=== PATIENT | female | born 1940 | race Caucasian/White ===

== ENCOUNTER → 2019-01-29 09:53 | Outpatient (CLI) | payer MEDICARE ==
[2016-03-07 13:04] VITALS: BMI 28.9
[~2019-01-29 09:53] MED LIST: AMBIEN5 MG PO; BAYER CHEWABLE81 MG PO; FOLIC ACID1 MG PO; HUMIRA20 MG/0.4 SQ; METHOTREXATE2.5 MG PO; MIRALAX17 GM PO; OMEPRAZOLE20 M1 PO; ORAPRED ODT15 MG/TAB PO; OS-CAL500 MG PO; PINDOLOL5 MG PO; SUPER B COMPLE150 MG PO; SYNTHROID25 MCG PO; VITAMIN D250000 UNIT PO; ZOCOR40 MG PO
--- NOTE | 2019-02-01 09:04 | EC ---
PATIENT:LINETTE LAROSE DATE OF SERVICE: 01/29/19 SEX: F MEDICAL RECORD: [id number] DATE OF : 40 LOCATION:D.FORMERLY [facility] AGE OF PATIENT: 78 ADMISSION DATE: 01/29/19 REFERRING PHYSICIAN: INTERPRETING PHYSICIAN: FARZANA SOTO MD ECHOCARDIOGRAM REPORT ECHO CHARGES 4 ECHO COMPLETE Date: 01/29/19 CLINICAL DIAGNOSIS: CAD HX TRACE MR/TR ECHOCARDIOGRAPHIC MEASUREMENTS (adult normal given) AC root (d.<3.7cm) 3.2 cm LV Septum d (<1.2 cm> 1.0 cm Valve Excursion 1.6 cm LV Septum (systole) 1.2 cm Left Atria (s.<4.0cm> 3.8 cm LVPW d(<1.2cm) 1.4 cm RV (d.<2.3cm) 3.7 cm LVPW (sytole) 1.6 cm LV diastole(<5.6CM) 4.6 cm MV E-F(>70mm/sec) cm LV systole 3.5 cm LVOT Diameter 1.6 cm MV exc.(>10mm) 1.0 cm Est.ejection fraction (50-75%) % DOPPLER: LVIT cm/sec A 78.0 cm/sec E 68.0 cm/sec LA cm/sec RVSP 37 mmHg LVOT 86 cm/sec AOP1/2T 636 m/s Asc. Ao 133 cm/sec RVOT 64 cm/sec RA cm/sec PA 83 cm/sec AV Gradient Peak 7.10 mmHg AV Mean 3.30 mmHg AV Area 1.5 cm MV Gradient Peak 3.25 mmHg MV Mean 1.33 mmHg MV Area cm COMMENTS: Luggage Maker: 2 ALLISON MILAN Patient Access Registrar: 3 Dr. Dickson TAPE# PACS Pericardial Effusion N DATE OF SERVICE: Adequate 2D, color flow imaging, spectral Doppler, and M-Mode No LVH. LV internal dimensions are normal. Wall motion is normal. EF is greater than or equal to 55%. Aortic valve is tricuspid. No evidence of stenosis by Doppler interrogation. Left atrium is normal at 3.8 cm. Mitral valve shows no prolapse. Mild plus MR. Right-sided chambers are grossly normal. Mild TR. ECHOCARDIOGRAM REPORT [id number] LINETTE LAROSE TRANSINT:[id number] Voice Confirmation ID: [id number] DOCUMENT ID: [id number] FARZANA SOTO MD at 0904 CC: [id number] DICTATION DATE: 01/31/19 1020 [employer] TESTER WATER: 01/31/19 1206 DEP CLI 01/29/19 [place] [id number] [place] [id number]
== END | disposition home or self-care (01) ==
LOC: D.HCCECHO 09:53
PROVIDERS: ATTEND Internal Medicine Interventional Cardiology
DX: I25.10 Atherosclerotic heart disease of native coronary artery without angina pectoris (principal)